=== PATIENT | female | born 1960 | race Caucasian/White ===

== ENCOUNTER 2025-03-06 12:45 | Outpatient (CLI) | payer OTHER ==
[2025-03-06 14:08] LABS: Estimated GFR - POC 82.0
== END 2025-03-06 12:46 | disposition home or self-care (01) ==
LOC: CSHMRI 12:45
PROVIDERS: ATTEND Family Medicine
DX: T85.49XD Other mechanical complication of breast prosthesis and implant, subsequent encounter (principal)
CPT/HCPCS: 36415; 82565 ×2; C8908